=== PATIENT | male | born 1955 | race Caucasian/White ===

== ENCOUNTER 2017-10-27 19:44 | Emergency (ER) | payer MEDICARE, OTHER ==
[~2017-10-27] VITALS: Ht 182.9 cm; Wt 131.5 kg
--- NOTE | 2017-10-27 20:36 | PHYS DOC ---
Adult General Chief Complaint Chief Complaint: LACERATION/AVULSION HPI HPI 62-year-old male presents after cutting himself with a grinding wheel. He was working with a grinding wheel when his hand slipped and his left MCP struck the wheel. It caused a linear abrasion in the skin. The patient is on aspirin so it started to bleed. He was able to the bleeding controlled. He came to the ED in case he needed to have stitches. He denies any other injuries or complaints. The pain as a 1 out of 10. His tetanus was 4 years ago. Review of Systems Review of Systems Constitutional: Denies fever or chills [] Eyes: Denies change in visual acuity, redness, or eye pain [] HENT: Denies nasal congestion or sore throat [] Respiratory: Denies cough or shortness of breath [] Cardiovascular: No additional information not addressed in HPI [] GI: Denies abdominal pain, nausea, vomiting, bloody stools or diarrhea [] : Denies dysuria or hematuria [] Musculoskeletal: Denies back pain or joint pain [] Integument: Abrasion of the left hand[] Neurologic: Denies headache, focal weakness or sensory changes [] Endocrine: Denies polyuria or polydipsia [] All other systems were reviewed and found to be within normal limits, except as documented in this note. Physical Exam Physical Exam Constitutional: Well developed, well nourished, no acute distress, non-toxic appearance. [] HENT: Normocephalic, atraumatic, bilateral external ears normal, oropharynx moist, no oral exudates, nose normal. [] Eyes: PERRLA, EOMI, conjunctiva normal, no discharge. [] Neck: Normal range of motion, no tenderness, supple, no stridor. [] Cardiovascular:Heart rate regular rhythm, no murmur [] Lungs & Thorax: Bilateral breath sounds clear to auscultation [] Abdomen: Bowel sounds normal, soft, no tenderness, no masses, no pulsatile masses. [] Skin: 1.5 cm linear abrasion of the left MCP of the second digit. Bleeding controlled. Some granular material in the wound. [] Back: No tenderness, no CVA tenderness. [] Extremities: No tenderness, no cyanosis, no clubbing, ROM intact, no edema. [] Neurologic: Alert and oriented X 3, normal motor function, normal sensory function, no focal deficits noted. [] Psychologic: Affect normal, judgement normal, mood normal. [] EKG EKG [] Radiology/Procedures Radiology/Procedures [] Course & Med Decision Making Course & Med Decision Making Pertinent Labs and Imaging studies reviewed. (See chart for details) The abrasion did not go through all the layers of skin. I was able to cleanse and pick out foreign bodies from the wound site. I discussed putting a couple stitches in it versus leaving it open. The patient agreed to the best to leave it open case the rather small foreign bodies and help prevent infection. Bleeding is well controlled. We will place triple antibiotics ointment and a dressing over the wound. The patient will change it daily and keep it clean. Antibiotics are not indicated at this time. [] Dragon Disclaimer Dragon Disclaimer This electronic medical record was generated, in whole or in part, using a voice recognition dictation system. Departure Departure: Referrals: BRIANDA MA (PCP) JENIFER CORDOVA DO October 27, 2017 20:36
[2017-10-27 20:46] VITALS: BP 160/96
== END 2017-10-27 20:46 | disposition home or self-care (01) ==
LOC: ER 19:44
DX: S60.512A Abrasion of left hand, initial encounter (principal); S60.453A Superficial foreign body of left middle finger, initial encounter; W31.89XA Contact with other specified machinery, initial encounter; Y93.89 Activity, other specified; Y99.8 Other external cause status; Y92.89 Other specified places as the place of occurrence of the external cause
CPT/HCPCS: 99284

== ENCOUNTER 2017-11-20 | Emergency (ER) | payer MEDICARE, OTHER ==
[~2017-11-20] VITALS: Ht 182.9 cm; Wt 138.2 kg
--- NOTE | 2017-11-20 00:14 | ED.ADGEN ---
Past History Past Medical History: Hypertension Past Surgical History: Knee Replacement Alcohol Use: None Drug Use: None Adult General Chief Complaint Chief Complaint ",... I think .. I allergic to amlodipine HPI HPI Patient is a 62 year old male who presents with above hx and complaints of rash and itching after taking amlodipine. Patient states symptoms have been constant after ingestion of the amlodipine for hypertension. Patient denies any intake of any new foods or other drugs. Patient does have a history of hypertension and has other hypertensive meds. Patient normally follows with Dr. Tejada. No history of travel. No history of specific ill contacts. Review of Systems Review of Systems Constitutional: Denies fever or chills [] Eyes: Denies change in visual acuity, redness, or eye pain [] HENT: Denies nasal congestion or sore throat [] Respiratory: Denies cough or shortness of breath [] Cardiovascular: No additional information not addressed in HPI [] GI: Denies abdominal pain, nausea, vomiting, bloody stools or diarrhea [] : Denies dysuria or hematuria [] Musculoskeletal: Denies back pain or joint pain [] Integument: Complaints of generalized itchy rash after taking amlodipine Neurologic: Denies headache, focal weakness or sensory changes [] Endocrine: Denies polyuria or polydipsia [] All other systems were reviewed and found to be within normal limits, except as documented in this note. Family History Family History Noncontributory Current Medications Current Medications Current Medications Medications (Trade) Dose Ordered Sig/[place] Start Time Stop Time Status Last Admin Dose Admin Clonidine HCl (Catapres Tts-2) 1 patch 1X ONCE 11/20/17 00:30 11/20/17 00:31 DC 11/20/17 00:41 1 PATCH Famotidine (Pepcid) 20 mg 1X ONCE 11/20/17 00:15 11/20/17 00:29 DC 11/20/17 00:23 20 MG Methylprednisolone Acetate (DEPO-Medrol IM) 40 mg 1X ONCE 11/20/17 00:15 11/20/17 00:29 DC 11/20/17 00:24 40 MG See nursing for home medications Allergies Allergies Allergies Coded Allergies Type Severity Reaction Last Updated Verified Penicillins Allergy Unknown 11/20/17 Yes Uncoded Allergies Type Severity Reaction Last Updated Verified cholesterol meds Allergy Severe 11/20/17 Physical Exam Physical Exam Constitutional: Moderately acute distress, non-toxic appearance. [] HENT: Normocephalic, atraumatic, bilateral external ears normal, oropharynx moist, no oral exudates, nose normal. [] Eyes: PERRLA, EOMI, conjunctiva normal, no discharge. [] Neck: Normal range of motion, no tenderness, supple, no stridor. [] Cardiovascular:Heart rate regular rhythm, no murmur []PMI to the left. Lungs & Thorax: Bilateral breath sounds clear to auscultation [] Abdomen: Bowel sounds normal, soft, no tenderness, no masses, no pulsatile masses. [] Skin: Diffuse erythemic rash Back: No tenderness, no CVA tenderness. [] Extremities: No tenderness, no cyanosis, no clubbing, ROM intact, no edema. [] Neurologic: Alert and oriented X 3, normal motor function, normal sensory function, no focal deficits noted. [] Psychologic: Affect anxious, judgement normal, mood normal. [] EKG EKG [] Radiology/Procedures Radiology/Procedures [] Course & Med Decision Making Course & Med Decision Making Pertinent Labs and Imaging studies reviewed. (See chart for details). Patient to stop amlodipine. Patient resident his other hypertensive meds. Patient received a Depo-Medrol 40 mg injection. We'll give Zantac 150 mg twice a day for 14 days. Patient may take Benadryl 25-50 mg up 4 times a day for itching. Patient return if any concerns. Patient follow-up primary care. [] Final Impression Final Impression 1. Possible drug allergy- Amlodipine 2. Hypertension[] Dragon Disclaimer Dragon Disclaimer This electronic medical record was generated, in whole or in part, using a voice recognition dictation system. BABATUNDE HARVEY MD Nov 20, 2017 00:14
[2017-11-20] MEDS: FAMOTIDINE 20 MG TABLET PO ONE (00:23)
[2017-11-20] MEDS: methylPREDNISolone ACETATE 40 MG/ML VIAL. IM ONE (00:24)
[2017-11-20] MEDS: cloNIDine TTS-2 1 PATCH PATCH TD ONE (00:41)
[2017-11-20] MEDS ORDERED: RANI150T21 PO (00:46)
[2017-11-20 01:07] VITALS: BP 157/98
== END 2017-11-20 01:11 | disposition home or self-care (01) ==
LOC: ER
DX: R21 Rash and other nonspecific skin eruption (principal); L29.9 Pruritus, unspecified; T46.1X5A Adverse effect of calcium-channel blockers, initial encounter; I10 Essential (primary) hypertension; Z88.0 Allergy status to penicillin; Y92.89 Other specified places as the place of occurrence of the external cause
CPT/HCPCS: 96372; 99283; J1030

== ENCOUNTER 2018-09-17 11:10 | Emergency (ER) | payer MEDICARE, OTHER ==
[~2018-09-17] VITALS: Ht 182.9 cm; Wt 136.1 kg
[~2018-09-17 11:10] MED LIST: RANI150T21 PO
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
--- NOTE | 2018-09-17 12:09 | RAD ---
Right foot 3 views, right ankle 3 views. HISTORY: Pain, twisted, heel to 4 foot pain Right ankle 3 views were taken of the right ankle. There is not evidence of an acute fracture or osseous abnormality. Right foot 3 views were taken of the right foot. There is mild spurring on the calcaneus. There is a mild bunion deformity. There is no fracture or acute osseous abnormality. IMPRESSION: 1. No fracture or acute osseous abnormality in the right ankle. 2. No acute osseous abnormality noted in the right foot. Electronically signed by: Fortino Huynh MD (09/17/2018 12:07 PM) [facility]
[2018-09-17] MEDS ORDERED: MELO7.5T29 PO (12:25)
[2018-09-17 12:30] VITALS: BP 136/80
[2018-09-17] MEDS ORDERED: IBUPROFEN 600 MG TABLET. PO ONE (12:30)
== END 2018-09-17 12:34 | disposition home or self-care (01) ==
LOC: ER 11:10
DX: S93.401A Sprain of unspecified ligament of right ankle, initial encounter (principal); E78.00 Pure hypercholesterolemia, unspecified; I10 Essential (primary) hypertension; G89.29 Other chronic pain; M54.89 Other dorsalgia; Z88.0 Allergy status to penicillin; Z88.8 Allergy status to other drugs, medicaments and biological substances; X50.9XXA Other and unspecified overexertion or strenuous movements or postures, initial encounter; Y93.89 Activity, other specified; Y92.89 Other specified places as the place of occurrence of the external cause; Y99.8 Other external cause status
CPT/HCPCS: 29515; 73610; 73630; 99284

== ENCOUNTER → 2019-08-09 | Outpatient (CLI) | payer MEDICARE, OTHER ==
[~2019-08-09] MED LIST changes: +MELO7.5T29 PO; +RANI-376 PO; -RANI150T21 PO
--- NOTE | 2019-08-09 11:18 | RAD ---
KNEE RIGHT 2V DATE: 08/09/2019 12:00 AM INDICATION: Knee pain COMPARISON: None. FINDINGS: Bones: There is no evidence of acute fracture or dislocation. Joints: Mild tricompartmental degenerative changes appear There is no joint effusion. Miscellaneous: None. IMPRESSION: No acute osseous abnormality. Mild tricompartmental degenerative changes. Electronically signed by: Sebastian Garcia MD (08/09/2019 11:15 AM) [id number]
== END | disposition home or self-care (01) ==
LOC: PMG 09:18
PROVIDERS: ATTEND Physician Assistant
DX: M17.11 Unilateral primary osteoarthritis, right knee (principal)
CPT/HCPCS: 73560